=== PATIENT | male | born 1950 | race Caucasian/White ===

== ENCOUNTER 2019-08-02 10:55 | Outpatient (CLI) | payer MEDICARE | END 2019-08-02 23:59 | disposition home or self-care (01) | LOC: CFH 10:55 | PROVIDERS: ATTEND Internal Medicine Cardiovascular Disease | DX: I34.0 Nonrheumatic mitral (valve) insufficiency (principal); I10 Essential (primary) hypertension; I20.9 Angina pectoris, unspecified | CPT/HCPCS: 78452; 93017; 93306; A9502 ==